=== PATIENT | female | born 1960 | race Caucasian/White ===

== ENCOUNTER 2017-11-25 04:53 | Inpatient (IN) | payer OTHER ==
[~2017-11-25] VITALS: Ht 162.6 cm; Wt 81.6 kg
--- NOTE | ~2017-11-25 | PROC ---
[facility] [address] [place] [address] PROCEDURE REPORT Name: MACHELLE FLORES Room: [address] IN M.R.#: [id number] Admission: 11/25/17 Attend Phys: Mason Yuan, Discharge: Date of : 60 Report #: [id number] THIS REPORT FOR: //name// For GI report, please see the Provation report in Perceptive 7 content. By: [id number] Records Staff ROBERTO /ENMANUEL
[~2017-11-25 04:53] MED LIST: HYDROCODONE-AP1 EAC6 PO
[2017-11-25 04:56] VITALS: BP 90/72
[2017-11-25 05:18] LABS: HEMATOCRIT 45.9 % (37.0-47.0); HEMOGLOBIN 15.7 gm/dL (12.0-15.0); MCH 31.8 pg (26.0-34.0); MCHC 34.1 g/dL (28.0-37.0); MCV 93.3 fL (80.0-100.0); MPV 7.3 fl. (7.2-11.1); NUCLEATED RBCS 0 /100WBC; PLATELET COUNT* 431 thou/uL (150-400); RBC 4.92 mil/uL (4.20-5.00); RDW-CV 12.9 % (10.5-14.5); WBC 14.1 thou/uL (4.0-11.0)
[2017-11-25 05:20] LABS: URINE BLOOD 2+ (Negative); URINE CLARITY CLEAR; URINE COLOR YELLOW; URINE GLUCOSE-RANDOM NEGATIVE (Negative); URINE KETONES TRACE (Negative); URINE LEUKOCYTES-REFLEX TRACE (Negative); URINE NITRITE-REFLEX NEGATIVE (Negative); URINE PROTEIN 2+ (Negative); URINE SPECIFIC GRAVITY 1.015 (1.005-1.030); URINE UROBILINOGEN 0.2 E.U./dl (0.2-1.0)
[2017-11-25 05:25] LABS: URINE BILIRUBIN 1+ (Negative)
[2017-11-25 05:27] LABS: ANION GAP 7 mmol/L (7-16); BUN 17 mg/dL (7-18); CALCIUM 9.3 mg/dL (8.5-10.1); CHLORIDE 100 mmol/L (98-107); CO2 29 mmol/L (21-32); GLUCOSE 165 mg/dL (70-99); POTASSIUM 4.7 mmol/L (3.5-5.1); SODIUM 136 mmol/L (136-145)
[2017-11-25 05:28] LABS: ICTOTEST (BILI CONFIRMATORY) Negative (Negative)
[2017-11-25 05:39] LABS: ALBUMIN 4.3 g/dL (3.4-5.0); ALKALINE PHOSPHATASE 85 U/L (46-116); LIPASE 190 U/L (73-393); SGOT 15 U/L (15-37); SGPT 22 U/L (30-65); TOTAL BILIRUBIN 0.5 mg/dL (<0.1-1.0); TOTAL PROTEIN 8.3 g/dL (6.4-8.2); TROPONIN-I LEVEL <0.06 ng/mL (<0.06)
[2017-11-25 05:55] LABS: CASTS None Seen /LPF (None Seen); MUCUS 0-3 Light strn/LPF (None Seen); SQUAMOUS 0-3 Few /LPF (0-3)
[2017-11-25 05:58] LABS: URINE WBC-REFLEX 0-5 Rare /HPF (0-5)
[2017-11-25 05:59] LABS: URINE RBC 3-10 Few /HPF (0-2)
[2017-11-25 06:01] LABS: CRYSTALS None Seen /LPF (None Seen)
[2017-11-25 06:07] LABS: ABSOLUTE LYMPHOCYTES 1.1 thou/uL (0.8-5.3); ABSOLUTE MONOCYTES 0.6 thou/uL (0.0-1.2); ABSOLUTE NEUTROPHILS 12.4 thou/uL (1.6-8.1)
[2017-11-25 06:08] LABS: PLATELET ESTIMATE INCREASED
--- NOTE | 2017-11-25 07:13 | NUR ---
I ASSUMED CARE OF THE PATIENT AT 0700. SHE HAS HAD A PORTABLE CHEST XRAY AND WE ARE WAITING ON RESULTS AND A BED. PAIN HAS BEEN REPORTED TO PHYSICIAN AND PATIENT NEEDS ARE MET. IS AT THE BEDSIDE AND VITALS ARE STABLE AND CHARTED IN REASSESSMENT.
--- NOTE | 2017-11-25 08:01 | NUR ---
PATIENT IS TRANSFERED TO #114 WITH 2 FIRE EXTINGUISHER TECHNICIAN'S. REPORT CALLED TO NAM. PATIENT PAIN IS IMPROVING. NG TUBE CLAMPED AND SHE IS ON 2 LITERS OF OXYGEN.
[2017-11-25 08:04] VITALS: BP 131/86
[2017-11-25 08:05] VITALS: BP 120/72
[2017-11-25 12:01] VITALS: BP 113/70
--- NOTE | 2017-11-25 15:03 | NUR ---
DR MCWILLIAMS NOTIFIED REGARDING PT N/V AND SHE GAVE STAT ORDER FOR KUB AND MORE MEDICATIONS WERE ORDERED. PATCH WAS APPLIED, BUT WILL WAIT FOR OTHER IV MEDICATIONS PT STATES SHE WANTED TO WAIT UNTIL CONFIRMATION IF IT IS THE NG PLACEMENT THAT IS THE PROBLEM.
[2017-11-25 15:36] VITALS: BP 108/70
--- NOTE | 2017-11-25 15:57 | NUR ---
NG ADVANCED 8CM AND NOW IS AT 48CM AT THE NARE. STOMACH CONTENTS NOTED BEING DRAINED FROM TUBING INTO COLLECTION DEVICE AT THIS TIME. DR MCWILLIAMS AWARE. PT TOLERATED WELL
--- NOTE | 2017-11-25 18:38 | NUR ---
AT 1720 THIS PT HAD HER NG TUBE ADVANCED TO 54CM IN RT NARE AT THIS TIME DUE TO INCREASED NAUSEA AND VOMITTING AGAIN. THIS TIME THIS RN WAS ABLE TO PULL 40ML OF STOMACH CONTENTS OUT AND IT CONTINUED TO GO INTO THE TUBING ATTACHED TO LIWS WHEN THE PT HAD A FEW ICE CHIPS. PT RESTING AT THIS TIME. VSS THIS SHIFT. PT UP TO BATHROOM WITH ASSIST OF 1 THIS SHIFT.
[2017-11-25 20:20] VITALS: BP 143/79
[2017-11-26 04:00] LABS: HEMATOCRIT 40.4 % (37.0-47.0); MCH 31.5 pg (26.0-34.0); MCHC 32.7 g/dL (28.0-37.0); MCV 96.1 fL (80.0-100.0); MPV 7.3 fl. (7.2-11.1); RBC 4.2 mil/uL (4.20-5.00); RDW-CV 13.3 % (10.5-14.5); WBC 9.6 thou/uL (4.0-11.0)
[2017-11-26 04:26] LABS: HEMOGLOBIN 13.2 gm/dL (12.0-15.0)
[2017-11-26 05:02] LABS: ALBUMIN 3.3 g/dL (3.4-5.0); CALCIUM 8.1 mg/dL (8.5-10.1); CREATININE 0.8 mg/dL (0.6-1.3); MAGNESIUM 2.1 mg/dL (1.8-2.4); POTASSIUM 3.9 mmol/L (3.5-5.1); TOTAL BILIRUBIN 0.3 mg/dL (<0.1-1.0); TOTAL PROTEIN 6.7 g/dL (6.4-8.2)
--- NOTE | 2017-11-26 08:03 | NUR ---
ALERT AND ORIENTED X4. HAS NG TO LOW INTERMITTEN SUCTION. DRAINAGE LIGHT BROWN IN COLOR. NAUSEA MEDICATION GIVEN X1 AND HELPFUL. IV PAIN MEDICATION GIVEN X2 FOR ABDOMINAL CRAMPING. IVF INFUSING WITHOUT DIFFICULTY. CALL LIGHT WITHIN REACH.
[2017-11-26 08:20] VITALS: BP 120/75
--- NOTE | 2017-11-26 10:43 | EKG ---
[place] [address] ELECTROCARDIOGRAM REPORT Name: FLORESMACHELLE Room: [address] ADM IN M.R.#: [id number] Admission: 11/25/17 Attend Phys: Mason Yuan, Discharge: Date of : 60 Report #: [id number] THIS REPORT FOR: //name// [facility] ED Test Date: 2017-11-25 Test Time: 05:12:38 Pat Name: MACHELLE FLORES Department: Room: [facility] Gender: F Senior Financial Reporting Analyst: DAVID : 1960 Requested By: Marek Mendoza Order Number: [id number] MD: Mono Aburto Measurements Intervals Marlette Rate: 101 P: 46 FL: 151 QRS: 15 QRSD: 94 T: 59 QT: 346 QTc: 449 Interpretive Statements Sinus tachycardia Left atrial enlargement No previous ECG available for comparison Electronically Signed On 11-26-2017 10:43:19 CDT by Mono Aburto [email or web address] <ELECTRONICALLY SIGNED> By: Mono Aburto MD, [facility] 11/26/17 1043 1 1 Mono Aburto MD, FACC /EPI
[2017-11-26 16:00] VITALS: BP 176/75
--- NOTE | 2017-11-26 19:31 | NUR ---
PT ALERT AND ORIENTED X 4. C/O NAUSEA/VOMITING. RECEIVED IV PHENERGAN X 2 DOSES. PT RECIEVED IV MORPHINE FOR PAIN RELIEF. IVF'S INFUSING @ 125MLS/HR. PT UP WITH MIN ASSIST X 1. HAS NG TUB WITH 100 CC OUTPUT FOR DAY SHIFT. VS STABLE. HOURLY ROUNDS MAINTAINED. WILL USE CALL LIGHT FOR ASSISTANCE. CALL LIGHT WITHIN REACH. NURSING WILL CONTINUE TO MONITOR.
[2017-11-26 20:30] VITALS: BP 123/66
[2017-11-27 04:03] LABS: HEMATOCRIT 38.1 % (37.0-47.0); HEMOGLOBIN 12.9 gm/dL (12.0-15.0); MCH 32.1 pg (26.0-34.0); MCHC 33.8 g/dL (28.0-37.0); MPV 7.8 fl. (7.2-11.1); RBC 4.01 mil/uL (4.20-5.00); RDW-CV 12.8 % (10.5-14.5); WBC 10.9 thou/uL (4.0-11.0)
[2017-11-27 04:32] LABS: CALCIUM 8.1 mg/dL (8.5-10.1); CREATININE 0.7 mg/dL (0.6-1.3); POTASSIUM 4.1 mmol/L (3.5-5.1); TOTAL BILIRUBIN 0.3 mg/dL (<0.1-1.0); TOTAL PROTEIN 6.5 g/dL (6.4-8.2)
--- NOTE | 2017-11-27 07:22 | NUR ---
Alert and oriented x 4. She has been drowsy most of shift. She is stand by assist to the bathroom. She has been nauseated all of this shift. She's had pain and nausea x 3 this shift. Vitals are stable this shift. She has slept well.
[2017-11-27 08:40] VITALS: BP 114/74
--- NOTE | 2017-11-27 12:30 | NUR ---
PT.SLEEPING. CM DID NOT AWAKEN PT. WILL SEE HER LATER TODAY OR TOMORROW.
[2017-11-27 16:44] VITALS: BP 133/72
--- NOTE | 2017-11-27 18:18 | NUR ---
PT IS ALERT AND ORIENTED X 4. PT GIVEN IV MEDS FOR PAIN AND NAUSEA WITH RELIEF. IV PROCAL INFUSING AT 125 MLS/HR. NG TUBE IN PLACE. PT USING OXYGEN @ 3L/NC. ABLE TO AMBULATE WITH STAND BY ASSIST X 1. VS STABLE. PT ABLE TO HAVE SMALL LOOSE BOWEL MOVEMENT. HOURLY ROUNDS MAINTAINED. WILL USE CALL LIGHT FOR ASSISTANCE. CALL LIGHT WITHIN REACH. NURSING TO CONTINUE TO MONITOR.
[2017-11-27 20:00] VITALS: BP 121/63
[2017-11-28 04:14] LABS: HEMATOCRIT 37.4 % (37.0-47.0); HEMOGLOBIN 12.6 gm/dL (12.0-15.0); MCH 31.8 pg (26.0-34.0); MCHC 33.6 g/dL (28.0-37.0); MCV 94.7 fL (80.0-100.0); RBC 3.94 mil/uL (4.20-5.00); RDW-CV 12.7 % (10.5-14.5); WBC 10.3 thou/uL (4.0-11.0)
[2017-11-28 04:39] LABS: ALBUMIN 3.1 g/dL (3.4-5.0); CALCIUM 8.2 mg/dL (8.5-10.1); CREATININE 0.7 mg/dL (0.6-1.3); MAGNESIUM 1.9 mg/dL (1.8-2.4); PHOSPHORUS* 3.1 mg/dL (2.5-4.9); POTASSIUM 4.3 mmol/L (3.5-5.1); TOTAL BILIRUBIN 0.4 mg/dL (<0.1-1.0); TOTAL PROTEIN 6.1 g/dL (6.4-8.2)
--- NOTE | 2017-11-28 06:42 | NUR ---
Alert and oriented x 4. NG to LIS. Nausea and abdomianl pain. Bowel sounds x 4. She is up walking to the bathroom with stand by assist. She had pain and nausea meds.
[2017-11-28 07:59] VITALS: BP 122/68
[2017-11-28 10:53] VITALS: BP 122/68
[2017-11-28 11:15] VITALS: BP 142/79
[2017-11-28 12:49] VITALS: BP 128/69; BP 142/79
[2017-11-28 15:34] VITALS: BP 129/87
--- NOTE | 2017-11-28 17:42 | NUR ---
PATIENT HAS BEEN ALERT AND ORIENTED TODAY VERY PLEASANT. SEAMUS E PAIN TODAY AND NAUSEA THAT IS SOMEWHAT CONTROLLED BY IV MEDICATIONS. UP WITH STAND BY IN ROOM, NG DISCONTINUED DURING EGD. VITAL SIGNS HAVE BEEN STABLE ON ROOM AIR. CALL LIGHT IS IN REACH WILL CONTINUE TO MONITOR.
[2017-11-28 20:07] VITALS: BP 110/68
[2017-11-29] VITALS: BP 113/66
[2017-11-29 04:08] VITALS: BP 107/72
--- NOTE | 2017-11-29 04:20 | NUR ---
ASSUMED CARE OF PT AT 1900 PT ALERT AND ORIENTED X4, VS AND ASSESSMENT STABLE. PT VOICED NO COMPLAINTS AND SLEPT THROUGH THE NIGHT. WILL CONTINUE PLAN OF CARE.
[2017-11-29 04:34] LABS: HEMATOCRIT 35.3 % (37.0-47.0); HEMOGLOBIN 12.3 gm/dL (12.0-15.0); MCH 32.3 pg (26.0-34.0); MCHC 34.7 g/dL (28.0-37.0); MCV 92.9 fL (80.0-100.0); MPV 7.2 fl. (7.2-11.1); RBC 3.8 mil/uL (4.20-5.00); RDW-CV 12.8 % (10.5-14.5); WBC 6.4 thou/uL (4.0-11.0)
[2017-11-29 04:55] LABS: ALBUMIN 3.1 g/dL (3.4-5.0); CREATININE 0.6 mg/dL (0.6-1.3); POTASSIUM 3.8 mmol/L (3.5-5.1); TOTAL BILIRUBIN 0.4 mg/dL (<0.1-1.0)
[2017-11-29 09:23] VITALS: BP 106/67
[2017-11-29 16:23] VITALS: BP 119/66
--- NOTE | 2017-11-29 16:28 | NUR ---
ASSUMED CARE OF PATIENT AFTER MORNING REPORT AT APPROX 0720. ALERT AND ORIENTED X4. ASSESSMENT COMPLETED AND CHARTED. VSS ON ROOM AIR. PATIENT HAS HAD NO COMPLAINTS OF PAIN OR SOA. NAUSEA PRESENT THROUGHOUT SHIFT BUT ONLY GIVEN NAUSEA MEDICATION AT 0900 WITH MORNING MEDS. PATIENT ADVANCED FROM CLEAR LIQUID DIET TO SOFT FIBER RESTRICTED, FEELING SOME NAUSEA BUT HAS HAD NO VOMITING AND SAYS SHES TOLERATING DIET WELL. ANTIBIOTICS INFUSED ORDERED THEN SALINE LOCKED. HOURLY ROUNDS MAINTAINED, CALL LIGHT WITHIN REACH, NURSING WILL CONTINUE TO MONITOR.
--- NOTE | 2017-11-29 17:59 | NUR ---
LAB HAS BEEN CALLED REGARDING URINE CX RESULTS
--- NOTE | 2017-11-29 18:14 | NUR ---
ASSUMED PT CARE @ 5390. PT HAS NO C/O'S PAIN OR NAUSEA. IV PATENT. WILL USE CALL LIGHT FOR ASSISTANCE. CALL LIGHT WITHIN REACH. NURSING WILL CONTINUE TO MONITOR.
[2017-11-29 20:05] VITALS: BP 116/70
[2017-11-30 03:38] LABS: HEMATOCRIT 35.5 % (37.0-47.0); HEMOGLOBIN 12.3 gm/dL (12.0-15.0); MCH 31.9 pg (26.0-34.0); MCHC 34.6 g/dL (28.0-37.0); MCV 92.2 fL (80.0-100.0); MPV 7.1 fl. (7.2-11.1); RBC 3.85 mil/uL (4.20-5.00); RDW-CV 12.6 % (10.5-14.5); WBC 6.8 thou/uL (4.0-11.0)
[2017-11-30 04:00] LABS: CALCIUM 8.4 mg/dL (8.5-10.1); CREATININE 0.6 mg/dL (0.6-1.3); POTASSIUM 3.7 mmol/L (3.5-5.1)
--- NOTE | 2017-11-30 04:33 | NUR ---
PATIENT HAS REMAINED ALERT AND ORIENTED X 4 THROUGHOUT THE SHIFT AND RESTING QUIETLY ON HOURLY ROUNDS. DENIES PAIN. VERY SLIGHT NAUSEA AT TIMES THAT HAS NOT REQUIRED INTERVENTION. (SCOPALAMINE PATCH, HOWEVER, IS ON) VITAL SIGNS STABLE. VOIDING ADEQUATELY. NO BM'S OVERNIGHT. CONTINUE TO MONITOR.
[2017-11-30] MEDS ORDERED: CARAFATE 11 GM/10 M1 PO (09:15)
[2017-11-30] MEDS ORDERED: MACROBID 100 M100 M2 PO (09:15)
[2017-11-30] MEDS ORDERED: REGLAN 5 MG TAB5 MG PO (09:15)
[2017-11-30] MEDS ORDERED: TRANSDERM-SCOP1 EACH TRANSDERM (09:15)
[2017-11-30] MEDS ORDERED: PROTONIX40 M2 PO (09:15)
[2017-11-30 09:40] VITALS: BP 104/70
[2017-11-30 10:39] VITALS: BP 104/70
--- NOTE | 2017-11-30 11:30 | NUR ---
ASSUMED CARE OF PATIENT AFTER MORNING REPORT. ALERT AND ORIENTED X4. ASSESSMENT COMPLETED AND CHARTED. VSS ON ROOM AIR. NO COMPLAINTS OF PAIN, NAUSEA, OR SOA. ANTIBIOTICS INFUSED ORDERED. PATEINT TOLERATING DIET WELL WITH NO COMPLAINTS OF NAUSEA AFTER MEALS. PATIENT DISCHARGED AT 1100, ALL PERSONAL BELONGINGS, PRESCRIPTIONS, AND DISCHARGE INFORMATION SENT WITH PATIENT UPON DISCHARGE.
--- NOTE | 2017-12-20 13:22 | CON ---
[address] [address] CONSULTATION Name: FLORESMACHELLE EBONY Room: [address] IN M.R.#: [id number] Admission: 11/25/17 Attend Phys: Mason Yuan, Discharge: 11/30/17 Date of : 60 Report #: [id number] THIS REPORT FOR: //name// CC: Jennifer Ellsworth Mason Yuan DATE OF SERVICE: 11/27/2017 REASON FOR CONSULTATION: Abdominal pain, nausea and vomiting. Consult placed by Dr. Jeff. HISTORY OF PRESENT ILLNESS: This is a very pleasant 57-year-old female with past medical history of bowel obstruction who is presenting with recurrent episodes of nausea and vomiting since 3 days. The patient reports that prior to Sunday, she was in her state of usual health, but on Sunday began noticing abrupt onset of abdominal pain located in the periumbilical region. The pain was cramping in nature and associated with nausea and vomiting. The patient reports that over the course of the rest of the day, she developed about 6-7 episodes of nonbloody, nonbilious emesis. She also noted that on Sunday she had a bowel movement at 3:00 p.m. and following that she did not have any further bowel movements until today. The patient reports nausea and vomiting every time the NG tube is clamped. The patient had a similar episode in 2005 when she had a surgery and lysis of adhesions. The patient denies any other significant symptoms such as fevers, chills, diarrhea or weight loss. PAST MEDICAL HISTORY AND PAST SURGICAL HISTORY: As mentioned before, the patient initially had a cholecystectomy in . Following this, she developed an episode of a bowel obstruction for which she underwent adhesiolysis. Following that, the patient developed an episode of ventral hernia for which she underwent repair. SOCIAL HISTORY: The patient denies significant smoking, alcohol or recreational drug use, is currently employed and lives with her . FAMILY HISTORY: Reviewed and nonsignificant. REVIEW OF SYSTEMS: A comprehensive 10-point review of systems is negative except for what is mentioned above. PHYSICAL EXAMINATION: VITAL SIGNS: Temperature 36.4, pulse rate 79, respirations 18, blood pressure 114/74. GENERAL: The patient is alert, awake, and appears to be in mild distress. HEENT: Pupils are equal, round, reactive [place] [address] CONSULTATION Name: FLORESMACHELLE Room: [address]#: [id number] Admission: 11/25/17 Attend Phys: Mason Yuan, Discharge: 11/30/17 Date of : 60 Report #: [id number] membranes are moist. Decompression of nasogastric tube is noted. NECK: Supple. There is no congestion. There is no supraclavicular lymphadenopathy. CARDIOVASCULAR: Rate and rhythm regular, S1, S2 present. PULMONARY: Lungs are clear to auscultation bilaterally. ABDOMEN: Midline ventral hernia noted in two distinct areas. Tenderness to palpation on both sides of ventral hernia. Both hernias appear to be easily reducible. There is no organomegaly. EXTREMITIES: Warm, well perfused. There is no edema. SKIN: Warm and dry and there appears to be no focal neurological deficit. LABORATORY DATA: Hemoglobin 12.9, hematocrit 38.1, WBC count 10.9, sodium 138, potassium 4.1, chloride 106, bicarbonate 29, BUN 15, creatinine 0.7, glucose 99, bilirubin 0.3, AST 10, ALT 15, alkaline phosphatase 61, lipase 190. IMAGING: CT abdomen performed on 11/25/2017. CT findings consistent with partial small-bowel obstruction, small bowel follow-through performed today, normal small bowel follow-through. ASSESSMENT AND PLAN: This is a very pleasant 57-year-old female with past medical history of bowel obstruction, ventral hernia, status post repair and recurrent hernias who is presenting with an episode of acute onset nausea and vomiting along with lack of bowel movements with CT evidence of partial small-bowel obstruction. The patient does report passing 2 bowel movements today and her small bowel follow-through appears to be normal, which when compared to her CT on admission showed evidence of partial bowel obstruction. Therefore, I suspect that this patient has had partial bowel obstruction, which is in the process of resolving itself. I would continue Zofran and promethazine for her nausea along with scopolamine patch that has already been prescribed. The patient never had an EGD; therefore, I recommend performing an EGD to rule out mucosal disease, which could be contributing to her symptoms. Continue NG decompression for now; however, in the view of her resolving obstruction, I suspect she will no longer need it tomorrow. The patient is due for an outpatient colonoscopy, which we will set up. <ELECTRONICALLY SIGNED> By: Nick Queen MD 12/20/17 1322 1544 [id number] Queen MD /nt
[2018-01-16] MEDS ORDERED: VITAMIN D1000 UNI1 PO (08:30)
[2018-01-16] MEDS ORDERED: IBUPROFEN 200200 M1 PO (08:30)
== END 2017-11-30 11:00 | disposition home or self-care (01) | DRG 388 ==
LOC: M.ERS 04:53 → M.ORTHSURG 06:29 → M.TBA-ER 06:29 → M.ORTHSURG 08:15
PROVIDERS: Family Medicine; Internal Medicine; ADMIT Family Medicine
PROC: 0D9670Z Drainage of Stomach with Drainage Device, Via Natural or Artificial Opening (ICD-10-PCS; 2017-11-25)
PROC: 0DJ08ZZ Inspection of Upper Intestinal Tract, Via Natural or Artificial Opening Endoscopic (ICD-10-PCS; principal; 2017-11-28)
DX: K56.600 Partial intestinal obstruction, unspecified as to cause (principal); J96.00 Acute respiratory failure, unspecified whether with hypoxia or hypercapnia; R65.11 Systemic inflammatory response syndrome (SIRS) of non-infectious origin with acute organ dysfunction; N39.0 Urinary tract infection, site not specified; E86.0 Dehydration; Z90.49 Acquired absence of other specified parts of digestive tract; Z88.5 Allergy status to narcotic agent; Z82.49 Family history of ischemic heart disease and other diseases of the circulatory system; Z80.8 Family history of malignant neoplasm of other organs or systems; Z82.69 Family history of other diseases of the musculoskeletal system and connective tissue

== ENCOUNTER → 2018-01-03 | Outpatient (CLI) | payer OTHER ==
[~2018-01-03] MED LIST changes: +CARAFATE 11 GM/10 M1 PO; +IBUPROFEN 200200 M1 PO; +MACROBID 100 M100 M2 PO; +PROTONIX40 M2 PO; +REGLAN 5 MG TAB5 MG PO; +TRANSDERM-SCOP1 EACH TRANSDERM; +VITAMIN D1000 UNI1 PO
== END ==
LOC: M.NUC 06:52
DX: K31.84 Gastroparesis (principal); R11.0 Nausea

== ENCOUNTER 2018-02-08 10:44 | Inpatient (IN) | payer OTHER ==
[~2018-02-08] VITALS: Ht 162.6 cm; Wt 80.7 kg
--- NOTE | ~2018-02-08 | OP ---
[address] [address] OPERATIVE REPORT Name: MACHELLE FLORES Room: [address] IN M.R.#: [id number] Admission: 02/08/18 Attend Phys: Dwayne Jeff DO Discharge: 02/12/18 Date of : 60 Report #: [id number] THIS REPORT FOR: //name// CC: Dwayne Mcraeluis antonio Ellsworth DICTATED BY: Elvis Ndiaye DO DATE OF SERVICE: 02/08/2018 Dr. Elvis Ndiaye dictating for Dr. Dwayne Jeff. PREOPERATIVE DIAGNOSIS: Recurrent ventral hernia x 2. POSTOPERATIVE DIAGNOSIS: Recurrent ventral hernia x 2. SURGEON: Dwayne Jeff DO. ENGRAVER FLATWARE: Elvis Ndiaye DO, PGY2. PROCEDURE PERFORMED: Exploratory laparotomy with lysis of adhesions greater than 30 minutes, repair of recurrent incisional hernias x 2 with 17.8 x 13.[address] mesh. ANESTHESIA: General and local. ESTIMATED BLOOD LOSS: 30 mL. SPECIMEN REMOVED: Hernia sac and contents. COMPLICATIONS: None. DISPOSITION: PACU and transferred to Med/Surg unit overnight for observation and pain control. INDICATIONS: The patient is a pleasant 57-year-old female who presented to the office with a chief complaint of recurrent hernias in her midline. CT scan confirmed hernia just superior to the umbilicus and in the epigastric region, recommended hernia repair. Full discussion of procedure, alternatives, risks, possible complications to include but not limited to bleeding, infection, postoperative pain, scarring, numbness, paresthesia, recurrence of hernia, need for further surgery, injury to other abdominal organs mainly bowel and anesthesia risks, the patient voiced understanding these risks and agreed to proceed with surgery. DESCRIPTION OF PROCEDURE: The patient was seen and examined in [address] [address] OPERATIVE REPORT Name: SANDRAMACHELLEDONNY BECK Room: [address] IN [facility].#: [id number] Admission: 02/08/18 Attend Phys: Dwayne Jeff, DO Discharge: 02/12/18 Date of : 60 Report #: [id number] holding area. Fully informed written consent was obtained. Two grams Ancef IV were given preoperative antibiotics. The patient was then transported to the operating room suite and placed on the operating table in a supine position at this time. Anesthesia then induced general endotracheal intubation and general anesthesia was successful. SCDs were placed to bilateral lower extremity calves. Grounding pad was placed to the right lateral thigh. All patient's extremities and joints were padded and protected and a Addison catheter was placed into the bladder. The patient was then prepped and draped using standard sterile fashion. Time-out was performed prior to the onset of incision. We began by making a midline incision superior to the umbilicus over the previous laparotomy incision, dissected down until the hernia sac was located. This was dissected using blunt and electrocautery dissection circumferentially around to the fascial edges of the defects. At this time, we inspected superiorly to this hernia and noting another hernia with a small fascial bridge. This was also dissected out circumferentially to the fascial edges. Next, after these hernias were reduced, we inspected inferiorly noting another large hernia just superior to the umbilicus. A decision was made to extend the laparotomy incision around the umbilicus inferiorly. Dissection was carried down to the level of the fascia. This hernia was then dissected circumferentially using electrocautery and blunt dissection around to the fascial defects. Of note, between the 2 hernias was a previously placed 6.4 cm mesh, a decision was made and this mesh was excised and removed. Once this was removed, we now had a large wide mouth hernia approximately 15 cm long x 8-10 cm wide. Next, the fascia was dissected laterally for plication to land our Prolene sutures circumferentially around once the mesh had been implanted. Once this was achieved, we brought a Ventrio ST 17.8 x 13.8 cm mesh onto the field. This was soaked in saline and placed into the abdomen. Next, using interrupted 0 Prolene sutures starting superiorly at the superior apex of the defect and working circumferentially counterclockwise around the defect, interrupted 0 Prolenes were placed. Once this was achieved, AbsorbaTack tacker was used to place tacks between our 0 Prolene sutures. Once this was performed, the fascia overlying the mesh was closed primarily with additional 0 Prolenes, one was run from the inferior apex to the middle of the incision and this was tied and an additional 0 Prolene was run from the superior apex to the middle of the fascial defect. After this, a 15-German ANKITA drain was placed on top of the fascia. This was sewed in place with a 2-0 nylon. Next, using a layered closure, 2-0 Vicryl interrupted sutures were used to close the subcutaneous and deep dermal layers and skin was closed using ana rosa. Abdomen was cleansed using wet and dry laps. Telfa, 4 x 4s, ABDs and Medipore tape were placed for sterile dressing and a large abdominal binder was placed around the patient. The patient was extubated in the OR, transported to PACU in stable condition after a brief recovery from anesthesia [place] [address] OPERATIVE REPORT Name: MACHELLE FLORES Room: [address]#: [id number] Admission: 02/08/18 Attend Phys: Dwayne Jeff DO Discharge: 02/12/18 Date of : 60 Report #: [id number] admitted as inpatient for overnight observation and pain control with plans to discharge home tomorrow pending pain is well controlled, tolerating p.o. intake and ambulating with minimal assistance. She will then follow up with Dr. Jeff in 1 week and plan to take ana rosa out in the next 10-14 days. By: 1539 [id number] Jeff DO /nt
[2018-02-08 12:00] LABS: HEMATOCRIT 38.2 % (37.0-47.0); MCH 31.5 pg (26.0-34.0); MCHC 33.9 g/dL (28.0-37.0); MCV 92.9 fL (80.0-100.0); MPV 7.2 fl. (7.2-11.1); RBC 4.11 mil/uL (4.20-5.00); RDW-CV 13.4 % (10.5-14.5); WBC 5.8 thou/uL (4.0-11.0)
[2018-02-08 12:06] LABS: CALCIUM 8.9 mg/dL (8.5-10.1); CREATININE 0.7 mg/dL (0.6-1.3); POTASSIUM 3.8 mmol/L (3.5-5.1)
[2018-02-08 12:16] LABS: ALBUMIN 3.7 g/dL (3.4-5.0); TOTAL BILIRUBIN 0.4 mg/dL (<0.1-1.0); TOTAL PROTEIN 8.9 g/dL (6.4-8.2)
[2018-02-08 17:18] VITALS: BP 143/59
[2018-02-08 20:00] VITALS: BP 107/69
[2018-02-09 00:25] VITALS: BP 133/78
[2018-02-09 04:24] VITALS: BP 108/54
[2018-02-09 08:32] VITALS: BP 106/62
[2018-02-09 16:00] VITALS: BP 132/89
[2018-02-09 21:30] VITALS: BP 99/55
[2018-02-10] VITALS: BP 100/53
[2018-02-10 04:00] VITALS: BP 101/49
[2018-02-10 08:15] VITALS: BP 123/74
[2018-02-10 08:40] LABS: HEMATOCRIT 34.3 % (37.0-47.0); HEMOGLOBIN 11.5 gm/dL (12.0-15.0); MCH 32.1 pg (26.0-34.0); MCHC 33.7 g/dL (28.0-37.0); MCV 95.4 fL (80.0-100.0); MPV 7.5 fl. (7.2-11.1); RBC 3.59 mil/uL (4.20-5.00); RDW-CV 13.8 % (10.5-14.5); WBC 10.8 thou/uL (4.0-11.0)
[2018-02-10 08:50] LABS: CREATININE 0.8 mg/dL (0.6-1.3); MAGNESIUM 1.9 mg/dL (1.8-2.4); PHOSPHORUS* 2.1 mg/dL (2.5-4.9); POTASSIUM 4.4 mmol/L (3.5-5.1)
[2018-02-10 16:00] VITALS: BP 104/64
[2018-02-10 22:00] VITALS: BP 90/43
[2018-02-11] VITALS: BP 100/54
[2018-02-11 04:00] VITALS: BP 105/54
[2018-02-11 04:19] LABS: HEMOGLOBIN 10.6 gm/dL (12.0-15.0); MCH 31.6 pg (26.0-34.0); MCHC 33.3 g/dL (28.0-37.0); MPV 7.4 fl. (7.2-11.1); RBC 3.36 mil/uL (4.20-5.00); RDW-CV 13.4 % (10.5-14.5); WBC 7.4 thou/uL (4.0-11.0)
[2018-02-11 04:35] LABS: CALCIUM 8.3 mg/dL (8.5-10.1); CREATININE 0.7 mg/dL (0.6-1.3); MAGNESIUM 2.1 mg/dL (1.8-2.4); POTASSIUM 4.5 mmol/L (3.5-5.1)
[2018-02-11 08:15] VITALS: BP 124/85
[2018-02-11 16:00] VITALS: BP 108/61
[2018-02-11 21:30] VITALS: BP 126/62
[2018-02-12 08:30] VITALS: BP 129/75
[2018-02-12] MEDS ORDERED: ZOFRAN ODT4 MG PO (09:55)
[2018-02-12] MEDS ORDERED: NORCO 5-325 TA1 EACH PO (11:39)
[2018-02-12 12:01] VITALS: BP 129/75
--- NOTE | 2018-02-15 10:06 | PATH ---
[address] [address] PATHOLOGY RPT PROCEDURE Name: TELMA BERG Room: [address] IN M.R.#: [id number] Admission: 02/08/18 Date of : 60 Discharge: 02/12/18 Report #: [id number] Path Case #: [id number] [facility] Accession Number: [id number] . 01 Material submitted: . ABDOMINAL MESH . 01 Clinical history: . Incisional hernia without obstruction . 02 Diagnosis: Gross diagnosis (abdominal mesh): - Mesh with adherent soft tissue. (KRISTIE:solo; 02/12/2018) QMS/02/12/2018 . 02 Electronically signed: . Moise Luque MD, Pathologist NPI- [id number] . 01 Gross description: . The specimen is received in formalin, labeled "Telma Berg, abdominal mesh". Received is a segment of pale pavon mesh with adherent yellow-pavon fibroadipose tissue and blue sutures measuring 7.5 x 6.5 x 0.7 cm in greatest dimensions. Gross photographs are taken. Sections are not submitted. (CAA; 02/11/2018) QAC/QAC . 02 Pathologist provided ICD-10: K43.2 . 02 CPT . 235157 Specimen Comment: A courtesy copy of this report has been sent to Specimen Comment: [phone], . Specimen Comment: Report sent to / DR CACERES Specimen Comment: A duplicate report has been generated due to demographic updates. Performed at: [address] [facility] [address], [place], [place] [id number] MD Morgan Frey MD Phone: [phone] Performed at: [address] [facility] [address] [address], [place], [place] [id number] MD Mosie Luque MD Phone: [phone]
== END 2018-02-12 13:00 | disposition home or self-care (01) | DRG 354 ==
LOC: M.SUR 10:44 → M.ORTHSURG 15:19 → M.TBA 15:19 → M.ORTHSURG 16:12
PROVIDERS: ADMIT Surgery
PROC: 0WPF0JZ Removal of Synthetic Substitute from Abdominal Wall, Open Approach (ICD-10-PCS; principal; 2018-02-08)
PROC: 0WUF0JZ Supplement Abdominal Wall with Synthetic Substitute, Open Approach (ICD-10-PCS; principal; 2018-02-08)
DX: K43.2 Incisional hernia without obstruction or gangrene (principal); R71.0 Precipitous drop in hematocrit; Z88.1 Allergy status to other antibiotic agents; Z88.5 Allergy status to narcotic agent

== ENCOUNTER → 2018-03-05 | Outpatient (CLI) | payer OTHER ==
[~2018-03-05] MED LIST changes: +NORCO 5-325 TA1 EACH PO; +ZOFRAN ODT4 MG PO
== END ==
LOC: M.CT 15:26
DX: Z09 Encounter for follow-up examination after completed treatment for conditions other than malignant neoplasm (principal); K43.2 Incisional hernia without obstruction or gangrene; K76.9 Liver disease, unspecified; Z90.49 Acquired absence of other specified parts of digestive tract